=== PATIENT | male | born 2000 | race Caucasian/White ===

== ENCOUNTER 2023-06-03 14:11 | Outpatient (CLI) | payer OTHER ==
--- NOTE | 2023-06-03 14:41 | XRAY Report ---
PROCEDURE: Ankle 3+V LT INDICATIONS: SPRAIN OF UNSPECIFEIED LIGAMENT OF LEFT ANKLE TECHNIQUE: 3 views of the ankle were acquired. COMPARISON: None. FINDINGS: Bones: No fractures or dislocations. Ankle mortise is normally aligned. No suspicious bony lesions . Soft tissues: No tibiotalar joint effusion. Achilles tendon appears normal. IMPRESSION: No acute bony abnormality. No significant effusion. Reviewed by: Oni Khanna MD on 06/03/2023 2:40 PM PST Approved by: Oni Khanna MD on 06/03/2023 2:40 PM PST Station ID: [id number]
== END 2023-06-03 14:12 | disposition home or self-care (01) ==
LOC: DI 14:11
PROVIDERS: ATTEND Physician Assistant Medical
DX: S93.402A Sprain of unspecified ligament of left ankle, initial encounter (principal)

== ENCOUNTER 2023-11-23 12:51 | Outpatient (CLI) | payer OTHER ==
--- NOTE | 2023-11-23 16:17 | XRAY Report ---
PROCEDURE: Ankle 3+V LT INDICATIONS: LEFT ANKLE PAIN TECHNIQUE: 3 views of the ankle were acquired. COMPARISON: 06/03/2023. FINDINGS: Bones: No fractures or dislocations. Ankle mortise is normally aligned. No suspicious bony lesions . Soft tissues: No tibiotalar joint effusion. Achilles tendon appears normal. IMPRESSION: No ankle fracture or dislocation. Ankle mortise is congruent. Reviewed by: Kolby Ramirez MD on 11/23/2023 4:16 PM PDT Approved by: Kolby Ramirez MD on 11/23/2023 4:16 PM PDT Station ID: [id number]
== END 2023-11-23 12:52 | disposition home or self-care (01) ==
LOC: DI 12:51
PROVIDERS: ATTEND Physician Assistant Surgical
DX: M25.572 Pain in left ankle and joints of left foot (principal)